=== PATIENT | female | born 1960 | race Caucasian/White ===

== ENCOUNTER → 2017-12-07 10:19 | Outpatient (CLI) | payer OTHER, SELFPAY ==
--- NOTE | 2017-12-07 10:24 | NM_ITS ---
NM hepatobiliary wo pharm HISTORY: ITS.REASON: EPIGASTRIC PAIN ORDERING PHYSICIAN: Ki Lees MD PATIENT AGE: 57 years COMPARISON: none available DOSE: 8.21 MCI TC Choletec INJ into RT ANT Fatty MEAL ENSURE FINDINGS: There is homogeneous activity within the hepatic parenchyma with the exception of the junction of the right left hepatic lobes. Correlation with patient's outside ultrasound recommended to exclude space-occupying lesion at this area. CT may be of further value if ultrasound isn't conclusive. Activity is present in the gallbladder by 10 minutes. Activity is present in the small bowel by 15 minutes. The gallbladder ejection fraction is calculated to be 52%, within normal limits The patient did not report pain or other symptoms during CCK infusion. IMPRESSION: 1. No evidence of common or cystic duct obstruction with normal gallbladder ejection fraction. 2. Photopenic area within the junction of the right and left hepatic lobes of the liver. Etiology indeterminate. Suggest correlation with ultrasound or CT scan
--- NOTE | 2017-12-07 10:54 | HMH.ITSHM ---
LEVOTHYROXINE EFFIDIOL CELEXA DICLOFINAC PRILOSEC TOPOMAX ZANTAC
== END ==
PROVIDERS: Family Provider Internal Medicine Adolescent Medicine; PCP Internal Medicine Adolescent Medicine; Visit Provider Internal Medicine Adolescent Medicine
DX: R10.13 Epigastric pain (principal)
CPT/HCPCS: 78226; A9537

== ENCOUNTER → 2018-01-08 10:52 | Outpatient (CLI) | payer OTHER, SELFPAY ==
--- NOTE | 2018-01-08 11:00 | MM_ITS ---
. MM Dig screening mamm BI w/CAD CAD Screening ORDERING PHYSICIAN : Ki eLes MD PATIENT AGE: 57 years GENDER: Female COMPARISON: Previous mammograms: From [facility] April 2015, January 2014 and December 2012 INDICATION: Patient takes estradiol. No new complaints. Family history. Mother with breast cancer age 70. TECHNIQUE: Standard CC and MLO images were obtained. R2 CAD reviewed. FINDINGS: Breast are moderately dense bilaterally which does slightly decreases to mammography. Prior films of finally arrived from [facility] and now available for comparison. Overall stable architecture RIGHT BREAST:On axillary Cc view there is a small area of density with some questionable early calcification... Equivocal calcifications in area relative density was likely present before. If they're not seen on the other cc view but may questionably seen on the 90 degree view. Although minimal I would recommend CC and 90 degree magnification views of these questionable calcifications labeled A at, as well as minimal density seen in this region.. On today's MLO view there also some questionable scattered calcification superior breast labeled B which would benefit from 90 degrees magnification when patient returns Last wall small area of minimal 4 mm area of nodularity towards lateral breast on cc view only & not definitely seen on MLO view.. However a standard spot view cc may be of benefit when patient as well LEFT BREAST:Stable left breast no new findings follow up one year recommended. IMPRESSION: Right breast.. Small area of density with some questionable early calcifications. Warrants magnification spot views., Central breast Minimal questionable nodularity at the lateral breast would benefit from a least a cc spot view when patient returns Left breast but stable.. Follow-up one year BI-RADS Category: 0 Need Additional Imaging Evaluaiton. RECOMMENDED FOLLOW-UP: IMM - IMMEDIATE FOLLOW-UP RECOMMENDED . Additional views right breast (A letter has been sent to the patient regarding results of the study.)
[2018-01-08 12:47] LABS: Basophils # 0.1 K/mm3 (0-0.2); Eosinophils # 0.1 K/mm3 (0.0-0.4); Eosinophils % 2.7 % (0.1-12.0); Hematocrit 39.2 % (37.0-47.0); Lymphocytes # 1.5 K/mm3 (0.7-4.5); Lymphocytes % 32.7 K/mm3 (10-50); Mean Corpuscular HGB Conc 30.6 g/dL (31.8-35.4); Mean Corpuscular Hemoglobin 28.8 pg (27.0-31.2); Mean Platelet Volume 7.9 fl (7.4-10.4); Monocytes # 0.3 K/mm3 (0.1-1.0); Monocytes % 6.6 % (1.7-9.3); Neutrophils # 2.6 K/mm3 (1.8-7.8); Platelet Count 222 K/mm3 (142-424); Red Blood Count 4.18 M/mm3 (4.20-5.40); Red Cell Distribution Width 12.5 % (11.5-17.5); White Blood Count 4.6 K/mm3 (4.8-10.8)
[2018-01-08 14:15] LABS: Alanine Aminotransferase 19 U/L (12-78); Albumin Level 3.9 gm/dL (3.4-5.0); Albumin/Globulin Ratio 1.4 (1.1-1.8); Alkaline Phosphatase 26 U/L (46-116); Amylase 85 U/L (25-125); Anion Gap 9.8 mEq/L (5-15); Aspartate Amino Transferase 16 U/L (15-37); Bilirubin,Total 0.3 mg/dL (0.2-1.0); Blood Urea Nitrogen 13 mg/dL (7-18); Calcium 8.5 mg/dL (8.5-10.1); Carbon Dioxide 27 mmol/L (21.0-32.0); Chloride 107 mmol/L (98-107); Chol/HDL Ratio 3.1 (1-3.5); Cholesterol 207 mg/dL (140-200); Creatinine,Serum 0.97 mg/dL (0.55-1.02); Estimated Glomerular Filt Rate 59 ml/min (>60); Free Thyroxine Index 2.7 ug/dL (5.93-13.13); GFR (African American) 71 ML/MIN (>60); Globulin 2.8 gm/dl (1.3-3.2); Glucose 86 mg/dL (74-106); HDL Cholesterol 67 mg/dL (29-89); LDL Cholesterol 123 mg/dL (0-130); Potassium 3.8 mmoL/L (3.5-5.1); Sodium 140 mmol/L (136-145); T4 (Thyroxine) 9.1 ug/dl (4.7-13.3); Total Protein,Serum 6.7 gm/dL (6.4-8.2); Triglycerides 84 mg/dL (30-200); Triiodothryronine (T3) Uptake 30 % (31-39); VLDL Cholesterol 17 mg/dL (0-40)
[2018-01-08 17:22] LABS: Thyroid Stimulating Hormone 2.55 uIU/ml (0.358-3.740)
== END ==
PROVIDERS: Family Provider Internal Medicine Adolescent Medicine; PCP Internal Medicine Adolescent Medicine; Visit Provider Internal Medicine Adolescent Medicine
DX: Z12.31 Encounter for screening mammogram for malignant neoplasm of breast (principal)
CPT/HCPCS: 36415; 77067; 80053; 80061; 82150; 84436; 84443; 84479; 85025

== ENCOUNTER → 2018-02-03 12:42 | Outpatient (CLI) | payer OTHER, SELFPAY ==
--- NOTE | 2018-02-03 | US_ITS ---
US breast RT complete COMPARISON: None HISTORY: Possible asymmetric density on recent mammogram TECHNIQUE: Targeted ultrasound FINDINGS: Is a tiny hypoechoic cystic-appearing lesion 10:00 position near the nipple measuring 0.4 x 0.3 x 0.3 cm in diameter and corresponding in size and location to the density on recent mammogram. The lesion is too small to definitely characterize but is likely a small cyst The surrounding breast parenchyma appears normal. There are couple of normal-appearing nodes in the axilla. IMPRESSION: Benign-appearing hypoechoic lesion likely a cyst and as recommended on the mammogram report suggest patient return for 6 month follow-up right mammogram and ultrasound right breast for continuing evaluation
--- NOTE | 2018-02-03 12:46 | MM_ITS ---
MM Dig mamm DX unilat RT CAD Ordering Physician: Ki Lees MD Patient Age: 57 years Female COMPARISON: Follow-up breast density INDICATION: Diagnostic mammogram. Follow-up, further evaluation of densities and calcifications right breast. TECHNIQUE: Magnification 90 degree, and cc views right breast along with full 90 degree view right breast. FINDINGS: Some asymmetric tissue in the deep superior, right breast on 90 degrees view is stable. The small collection of calcifications in the deep breast appear to be punctate and relatively scattered with no branching or particularly suspicious for. It is difficult to visualize and on some views forms a ringlike appearance which is a benign formation. Others view suggests linear possibly vascular calcification appearance. These are nonspecific but I suspect more likely benign and can be followed Also note a small nodular density superior right breast. Ultrasound will be performed here to further evaluate this feature. The is likely stable ULTRASOUND RIGHT BREAST. Including axillary survey. Survey entire breast performed including axillary lymph node survey . There is a small 3.1 mm cyst at right breast. Its height is appears similar to its width. No wall thickening here or other features to raise concern. No vascularity... This likely corresponds with a small area of nodularity Scattered benign axillary lymph nodes are again observed. IMPRESSION Dense breast decreases sensitivity.. On today's mammogram Spot views.:. Minimal loosely grouped area of small calcifications deep right breast..-Difficult to visualize.These calculations are nonspecific & but favor more likely benign... Recommend 6-7 month follow-up mammography magnification spot views. Small nodule at upper breast likely corresponds with a small 3.1 mm cyst seen on ultrasound The height of the cyst equals it width this follow-up ultrasound patient returns suggested BI-RADS Category: 3 Benign Finding Short Term Follow-up RECOMMENDED FOLLOW-UP: 6M 6 MONTH FOLLOW-UP Right mammogram with magnification views of calcifications 6 months Ultrasound right breast suggested that time as well A letter has been sent to the patient regarding results of the study.)
--- NOTE | 2018-02-03 12:46 | XR_ITS ---
DEXA SCAN.-BONE DENSITY STUDY HIPS AND LUMBAR SPINE HISTORY: Postmenopausal female 57-year-old female hypothyroidism low calcium intake history of fracture. Taking levothyroxine as well as hormone supplements TECHNIQUE: DEXA scan hip and lumbar spine The most complete data summary and color graphic presentation of the today's ( and any prior ) DEXA findings are available in PACS. Definition and treatment guidelines included. COMPARISON: None listed LUMBAR SPINE: Normal bone density L1 vertebral body demonstrates L1 the lowest T score -0.6 with BMD1.063 g/cm sq = normal bone density Overall mean lumbar L1-L4 T score -0.2 with BMD1.154 g/cm sq . . HIPS: Femoral neck density is best predictor of hip fracture risk . Osteopenia at femoral necks bilaterally Right femoral neck demonstrates the lowest T score - -2.3 with BMD0.714 g/cm sq . Left femoral neck T score = - -2.1 with BMD 0.747 Averaging region included reveals today's Hip Mean T score -1.0 with BMD0.976 g/cm sq ... IMPRESSION 1. LUMBAR SPINE: Normal bone density throughout all levels. 2. HIPS: Overall mean bone density at hips T score = -1.0 mild osteopenia . more pronounced Osteopenia femoral necks bilaterally (osteopenia right femoral neck T score = - 2.3) WHO criteria for post-menopausal, Women: Normal: T-score at or above -1 SD Osteopenia: T-score between -1 and -2.5 SD Osteoporosis: T-score at or below -2.5 SD
== END ==
PROVIDERS: Family Provider Internal Medicine Adolescent Medicine; PCP Internal Medicine Adolescent Medicine; Visit Provider Internal Medicine Adolescent Medicine
DX: R92.8 Other abnormal and inconclusive findings on diagnostic imaging of breast (principal); M85.89 Other specified disorders of bone density and structure, multiple sites
CPT/HCPCS: 76641; 77065; 77080

== ENCOUNTER → 2018-08-25 07:00 | Outpatient (CLI) | payer OTHER, SELFPAY ==
[2018-08-25 07:20] LABS: Basophils # 0.1 K/mm3 (0-0.2); Basophils % 1.3 % (0.1-2.0); Eosinophils # 0.1 K/mm3 (0.0-0.4); Hematocrit 40.5 % (37.0-47.0); Hemoglobin 13.4 g/dL (12.2-16.2); Lymphocytes # 1.2 K/mm3 (0.7-4.5); Lymphocytes % 29.2 % (10-50); Mean Corpuscular HGB Conc 33.1 g/dL (31.8-35.4); Mean Corpuscular Volume 93.6 fl (81-99); Mean Platelet Volume 7.5 fl (7.4-10.4); Monocytes # 0.2 K/mm3 (0.1-1.0); Monocytes % 6.1 % (1.7-9.3); Neutrophils # 2.5 K/mm3 (1.8-7.8); Neutrophils % 61.4 % (37.0-80.0); Platelet Count 217 K/mm3 (142-424); Red Blood Count 4.32 M/mm3 (4.20-5.40); Red Cell Distribution Width 12.8 % (11.5-17.5)
[2018-08-25 10:29] LABS: Alanine Aminotransferase 22 U/L (12-78); Albumin Level 3.8 gm/dL (3.4-5.0); Albumin/Globulin Ratio 1.3 (1.1-1.8); Alkaline Phosphatase 24 U/L (46-116); Anion Gap 13.2 mEq/L (5-15); Aspartate Amino Transferase 13 U/L (15-37); Bilirubin,Total 0.2 mg/dL (0.2-1.0); Blood Urea Nitrogen 13 mg/dL (7-18); Calcium 9.1 mg/dL (8.5-10.1); Carbon Dioxide 27 mmol/L (21.0-32.0); Chloride 107 mmol/L (98-107); Chol/HDL Ratio 3.6 (1-3.5); Cholesterol 238 mg/dL (140-200); Creatinine,Serum 1.08 mg/dL (0.55-1.02); Estimated Glomerular Filt Rate 52 ml/min (>60); Free Thyroxine Index 3.1 ug/dL (5.93-13.13); GFR (African American) 63 ML/MIN (>60); Glucose 99 mg/dL (74-106); HDL Cholesterol 66 mg/dL (29-89); LDL Cholesterol 146 mg/dL (0-130); Potassium 4.2 mmoL/L (3.5-5.1); Sodium 143 mmol/L (136-145); T4 (Thyroxine) 9.9 ug/dl (4.7-13.3); Thyroid Stimulating Hormone 8.81 uIU/ml (0.358-3.740); Total Protein,Serum 6.8 gm/dL (6.4-8.2); Triglycerides 128 mg/dL (30-200); Triiodothryronine (T3) Uptake 31 % (31-39); VLDL Cholesterol 26 mg/dL (0-40)
== END ==
PROVIDERS: Visit Provider Internal Medicine Adolescent Medicine
DX: E06.3 Autoimmune thyroiditis (principal); E78.5 Hyperlipidemia, unspecified
CPT/HCPCS: 36415; 80053; 80061; 84436; 84443; 84479; 85025

== ENCOUNTER → 2018-11-10 11:55 | Outpatient (CLI) | payer OTHER, SELFPAY ==
[2018-11-10 15:35] LABS: Lipase 180 u/L (73-393)
[2018-11-10 15:36] LABS: C-Reactive Protein < 0.2 mg/L (0.0-0.9)
[2018-11-10 15:50] LABS: Free Thyroxine Index 5.6 ug/dL (5.93-13.13); T4 (Thyroxine) 16.1 ug/dl (4.7-13.3); Thyroid Stimulating Hormone 0.07 uIU/ml (0.358-3.740); Triiodothryronine (T3) Uptake 35 % (31-39)
[2018-11-13 06:40] LABS: Tissue Transglutaminase IgA Ab <2 U/mL (0-3); Tissue Transglutaminase IgG Ab 3 U/mL (0-5)
== END ==
PROVIDERS: Internal Medicine Gastroenterology; Visit Provider Internal Medicine Adolescent Medicine
DX: K21.9 Gastro-esophageal reflux disease without esophagitis (principal); E03.8 Other specified hypothyroidism
CPT/HCPCS: 36415; 83516; 83690; 84436; 84443; 84479; 86140

== ENCOUNTER → 2019-06-08 16:11 | Outpatient (CLI) | payer OTHER, SELFPAY ==
[2019-06-08 19:37] LABS: Free Thyroxine Index 5.3 ug/dL (5.93-13.13); T4 (Thyroxine) 14.4 ug/dl (4.7-13.3); Thyroid Stimulating Hormone 0.09 uIU/ml (0.358-3.740); Triiodothryronine (T3) Uptake 37 % (31-39)
== END ==
PROVIDERS: Visit Provider Internal Medicine Adolescent Medicine
DX: E03.8 Other specified hypothyroidism (principal)
CPT/HCPCS: 36415; 84436; 84443; 84479

== ENCOUNTER → 2020-01-25 07:03 | Outpatient (CLI) | payer OTHER, SELFPAY ==
[2020-01-25 08:00] LABS: Chloride 109 mmol/L (98-107); Potassium 4.8 mmoL/L (3.5-5.1); Sodium 138 mmol/L (136-145)
[2020-01-25 08:02] LABS: Alanine Aminotransferase 9 U/L (12-78); Alkaline Phosphatase 22 U/L (38-126); Aspartate Amino Transferase 20 U/L (14-36); Bilirubin,Total 0.3 mg/dl (0.2-1.3); Blood Urea Nitrogen 15 mg/dl (7-17); Estimated Glomerular Filt Rate 57 ml/min (>60); GFR (African American) 68 ML/MIN (>60)
[2020-01-25 08:03] LABS: Albumin Level 4.1 g/dl (3.5-5.0); Albumin/Globulin Ratio 1.5 (1.1-1.8); Anion Gap 8.8 mEq/L (5-15); Calcium 9.3 mg/dl (8.4-10.2); Carbon Dioxide 25 mmol/L (22.0-30.0); Cholesterol 227 mg/dl (140-200); Globulin 2.7 g/dL (1.3-3.2); Glucose 92 mg/dl (74-100); HDL Cholesterol 75 mg/dl (40-60); Total Protein,Serum 6.8 g/dl (6.3-8.2); Triglycerides 128 mg/dl (30-150); VLDL Cholesterol 26 mg/dL (0-40)
[2020-01-25 08:14] LABS: Direct LDL Cholesterol 120.66 mg/dL (100-129)
[2020-01-25 08:34] LABS: Thyroid Stimulating Hormone 0.46 uIU/mL (0.465-4.68)
== END ==
PROVIDERS: Visit Provider Internal Medicine Adolescent Medicine
DX: E78.5 Hyperlipidemia, unspecified (principal); E03.9 Hypothyroidism, unspecified; I10 Essential (primary) hypertension
CPT/HCPCS: 36415; 80053; 80061; 84443

== ENCOUNTER → 2020-06-18 14:50 | Outpatient (CLI) | payer OTHER, SELFPAY ==
--- NOTE | 2020-06-18 14:56 | XR_ITS ---
PROCEDURE: XR LUMBAR SPINE MIN 4V CLINICAL INDICATION: LOW BACK PAIN,PAIN DUE TO TRAUMA COMPARISON: No exams were available for comparison FINDINGS: No fracture or dislocation. No lytic or blastic change. There is normal mineralization. There is mild facet hypertrophy on the right at L5-S1. Facet arthritic changes are present at L5-S1. There is mild degenerative disc disease at L4-5 and L5-S1. Other findings:None. IMPRESSION: Degenerative changes otherwise negative, no acute finding. Dictated by: Frandy Alvarez MD 06/18/2020 15:35 Frandy Alvarez MD in [place] 06/18/2020 15:35
== END ==
PROVIDERS: PCP Internal Medicine Adolescent Medicine; Visit Provider Internal Medicine Adolescent Medicine
DX: M54.5 Low back pain (principal); G89.11 Acute pain due to trauma
CPT/HCPCS: 72110

== ENCOUNTER → 2021-01-16 15:32 | Outpatient (CLI) | payer OTHER, SELFPAY ==
[2021-01-16 16:49] LABS: Basophils # 0.1 K/mm3 (0-0.2); Basophils % 1.4 % (0.1-2.0); Eosinophils # 0.1 K/mm3 (0.0-0.4); Eosinophils % 1.6 % (0.1-12.0); Hematocrit 40.7 % (37.0-47.0); Hemoglobin 13.4 g/dL (12.2-16.2); Lymphocytes # 1.6 K/mm3 (0.7-4.5); Lymphocytes % 33.2 % (10-50); Mean Corpuscular HGB Conc 32.9 g/dL (31.8-35.4); Mean Corpuscular Hemoglobin 29.1 pg (27.0-31.2); Mean Corpuscular Volume 88.6 fl (81-99); Mean Platelet Volume 8.1 fl (7.4-10.4); Monocytes # 0.3 K/mm3 (0.1-1.0); Monocytes % 6.1 % (1.7-9.3); Neutrophils # 2.8 K/mm3 (1.8-7.8); Neutrophils % 57.6 % (37.0-80.0); Platelet Count 257 K/mm3 (142-424); Red Cell Distribution Width 13.5 % (11.5-17.5); White Blood Count 4.9 K/mm3 (4.8-10.8)
[2021-01-16 22:04] LABS: Alanine Aminotransferase 11 U/L (12-78); Albumin Level 4.5 g/dl (3.5-5.0); Albumin/Globulin Ratio 1.6 (1.1-1.8); Alkaline Phosphatase 36 U/L (38-126); Anion Gap 15.4 mEq/L (5-15); Aspartate Amino Transferase 24 U/L (14-36); Bilirubin,Total 0.6 mg/dl (0.2-1.3); Blood Urea Nitrogen 9 mg/dl (7-17); Calcium 9.6 mg/dl (8.4-10.2); Carbon Dioxide 23 mmol/L (22.0-30.0); Chloride 106 mmol/L (98-107); Chol/HDL Ratio 3.3 (1-3.5); Cholesterol 272 mg/dl (140-200); Estimated Glomerular Filt Rate 46 ml/min (>60); GFR (African American) 55 ML/MIN (>60); Globulin 2.8 g/dL (1.3-3.2); Glucose 90 mg/dl (74-100); HDL Cholesterol 82 mg/dl (40-60); Potassium 4.4 mmoL/L (3.5-5.1); Sodium 140 mmol/L (136-145); Total Protein,Serum 7.3 g/dl (6.3-8.2); Triglycerides 110 mg/dl (30-150); VLDL Cholesterol 22 mg/dL (0-40)
[2021-01-16 22:15] LABS: Direct LDL Cholesterol 147.14 mg/dL (100-129)
[2021-01-16 22:21] LABS: 25-OH Vitamin D, Total 27.5 ng/mL (30-100); Free Thyroxine Index 3.5 ug/dL (5.93-13.13); T4 (Thyroxine) 12.1 ug/dl (5.53-11.0); Triiodothryronine (T3) Uptake 29 % (23.5-40.5)
[2021-01-16 22:35] LABS: Thyroid Stimulating Hormone 0.32 uIU/mL (0.465-4.68)
[2021-01-16 22:54] LABS: Vitamin B12 336 pg/mL (239-931)
== END ==
PROVIDERS: Visit Provider Internal Medicine Adolescent Medicine
DX: E06.3 Autoimmune thyroiditis (principal); E03.8 Other specified hypothyroidism; R53.83 Other fatigue; R53.81 Other malaise; E55.9 Vitamin D deficiency, unspecified; Z00.00 Encounter for general adult medical examination without abnormal findings
CPT/HCPCS: 36415; 80053; 80061; 82306; 82607; 84436; 84443; 84479; 85025

== ENCOUNTER 2022-12-15 08:32 | Emergency (ER) | payer BC, SELFPAY ==
[2022-12-15 08:43] VITALS: BP 123/61; PULSE 65; RESP 16; TEMP 36.6; O2SAT 100; BMI 18.6
--- NOTE | 2022-12-15 09:00 | EXP.UTC ---
Discharge Plan Disposition Patient Disposition: Home, Self-Care Condition: Good Prescriptions Prescriptions: New ciprofloxacin-dexamethasone 0.3-0.1 % Drops,Suspension 2 drp Ear-Right BID 7 Days Qty: 1 0RF No Action omeprazole 40 mg capsule,delayed release(DR/EC) 40 mg PO DAILY Label Comments: TAKE ONE CAPSULE BY MOUTH TWICE DAILY levothyroxine 88 mcg tablet 88 mcg PO DAILY Label Comments: TAKE ONE TABLET BY MOUTH ONCE DAILY citalopram 20 mg tablet 20 mg PO DAILY Label Comments: take 1 tab(s) by mouth once a day 30 day(s) estradiol 1 mg tablet 1 mg PO DAILY Label Comments: TAKE ONE TABLET BY MOUTH ONCE DAILY ergocalciferol (vitamin D2) 1,250 mcg (50,000 unit) capsule 50,000 unit PO WEEKLY Label Comments: take 1 cap(s) once a week Referrals Follow up/Referrals: Ki Lees MD [Primary Care Provider] - See instructions Activity Restrictions/Add. Instructions Additional Instructions/Restrictions: use the ear drops as directed. Take tylenol for pain. Follow up with your regular doctor. GO TO THE ER FOR ANY WORSENING SYMPTOMS Clinical Impressions Clinical Impression: Impacted cerumen of right ear, Acute otitis externa of right ear Instructions Patient Instructions: How to Instill Ear Drops, DI for Cerumen Impaction, Cerumen Impaction Discharge ED Provider: Cody Diaz [facility] General Stated complaint: Rt ear pain Mode of Arrival: Ambulatory Source of Information: Patient Limitations: No Limitations Time Seen by Provider: 12/15/22 09:00 Description of Symptoms (Recalled from Triage Doc. by RN): right ear ache HEENT Symptoms (Recalled from RN notes): Yes Resp Symptoms (Recalled from RN notes): No Skin Symptoms (Recalled from RN notes): No MS Symptoms (Recalled from RN notes): No Functional Status (Recalled from RN notes): n/a History of Present Illness Provider Complaint: She states that for the past 3 days she has had right ear pain and decreased hearing. Related Data Home Medications Medication Instructions Recorded Confirmed citalopram 20 mg tablet 20 mg PO DAILY Anxiety 12/15/22 12/15/22 ergocalciferol (vitamin D2) 1,250 50,000 unit PO WEEKLY Supplement 12/15/22 12/15/22 mcg (50,000 unit) capsule estradiol 1 mg tablet 1 mg PO DAILY hormone 12/15/22 12/15/22 levothyroxine 88 mcg tablet 88 mcg PO DAILY hormone 12/15/22 12/15/22 omeprazole 40 mg capsule,delayed 40 mg PO DAILY gerd 12/15/22 12/15/22 release Previous Rx's Medication Instructions Recorded ciprofloxacin 0.3 %-dexamethasone 2 drp Ear-Right BID 7 days #1 ea 12/15/22 0.1 % ear drops,suspension Allergies Allergy/AdvReac Type Severity Reaction Status Date / Time No Known Allergies Allergy Verified 12/15/22 08:39 Worker's Comp Is this a Worker's Comp case?: No [facility] Disclaimer: The information contained in this section may have been updated after the patient was seen, as this information can be updated by other users. Medical History Anxiety History of gastroesophageal reflux (GERD) Hypothyroid Surgical History H/O tubal ligation History of hysterectomy Family History Other No significant family history Social History Smoking Status: Never smoker alcohol intake: never current occupational status: employed Travel in the last 8 weeks: None ROS Obtained: Yes All systems reviewed & no additional complaints except as documented Constitutional Constitutional: Denies chills and Denies fever(s) Eyes Eyes: Denies eye discharge ENT Ears, Nose, Mouth, and Throat: Reports as per HPI, Denies dizziness, Reports otalgia and Denies sore throat Cardiovascular Cardiovascular: Denies chest pain Respiratory
[2022-12-15 09:56] VITALS: BP 123/61; PULSE 65; RESP 16; TEMP 36.6; O2SAT 100
== END 2022-12-15 09:45 | disposition home or self-care (01) ==
PROVIDERS: Emergency Provider Nurse Practitioner Family; PCP Internal Medicine Adolescent Medicine
DX: H60.501 Unspecified acute noninfective otitis externa, right ear (principal); H61.21 Impacted cerumen, right ear; E03.9 Hypothyroidism, unspecified; F41.9 Anxiety disorder, unspecified; K21.9 Gastro-esophageal reflux disease without esophagitis
CPT/HCPCS: 69200; 99204; 99213; G0463

== ENCOUNTER 2025-06-06 08:27 | Outpatient (CLI) | payer MEDICARE, OTHER, SELFPAY ==
--- NOTE | 2025-06-06 08:33 | CT_ITS ---
FINAL REPORT TECHNIQUE: After the administration of oral and intravenous contrast, axial images were obtained through the abdomen and pelvis by computed tomography. The study was performed with techniques to keep radiation dose as low as reasonably achievable, (ALARA). Individual dose reduction techniques using automated exposure control or adjustment of mA and/or kV according to the patient's size were employed. CLINICAL HISTORY: WEIGHT LOSS, LT LATERAL ABD PAIN COMPARISON: None FINDINGS: Abdomen: The lung bases are clear. The liver parenchyma is homogeneous. The gallbladder is present. The spleen, pancreas, adrenals and kidneys appear unremarkable. The aorta is normal in caliber. There is no free fluid or adenopathy. Pelvis: The appendix is not identified. There is a large amount of stool throughout the colon. The urinary bladder is unremarkable. There is no free fluid or adenopathy. Moderate facet hypertrophy is noted at the L5-S1 level bilaterally. IMPRESSION: Constipation. Reviewed, Interpreted and Dictated by Damian Sandoval MD Transcribed by Surekha Rob Authenticated and [facility]
[2025-06-06] MEDS: SODIUM CHLORIDE 0.9% 10ML SYR (RAD ONLY) 10 ML IV (08:46)
[2025-06-06] MEDS: IOPAMIDOL-370 (76%);100ML BOTTLE 75 ML IV (08:46)
[2025-06-06] MEDS: BARIUM SULFATE(READI-CAT2);450ML BOTTLE 450 ML PO (08:48)
== END 2025-06-06 23:59 | disposition home or self-care (01) ==
PROVIDERS: PCP Internal Medicine Adolescent Medicine; Visit Provider Internal Medicine Adolescent Medicine
DX: K59.00 Constipation, unspecified (principal); R63.4 Abnormal weight loss
CPT/HCPCS: 74177; Q9967